=== PATIENT | male | born 1970 | race Caucasian/White ===

== ENCOUNTER → 2017-03-19 | Outpatient (CLI) | payer OTHER, BC | LOC: LAB 13:21 | DX: Z00.00 Encounter for general adult medical examination without abnormal findings (principal); Z12.5 Encounter for screening for malignant neoplasm of prostate ==

== ENCOUNTER 2018-01-21 17:29 | Emergency (ER) | payer OTHER, BC ==
[~2018-01-21] VITALS: Ht 180.3 cm; Wt 109.0 kg
[2018-01-21 18:03] LABS: HEMATOCRIT 42.6 % (42.0-52.0); HEMOGLOBIN 15.4 g/dL (13.5-18.0); MEAN CELL VOLUME 82 fl (78-100); MEAN CORPUSCULAR HEMOGLOBIN 30 pg (27-31); MEAN CORPUSCULAR HGB CONC 36 g/dL (33-37); MEAN PLATELET VOLUME 9.5 fl (7.4-10.4); PLATELET COUNT 156 K/mm3 (130-400); RED BLOOD COUNT 5.21 M/mm3 (4.20-5.60); RED CELL DISTRIBUTION WIDTH 12.9 % (11.5-14.5); WHITE BLOOD COUNT 4.9 K/mm3 (4.8-10.8)
[2018-01-21 18:18] LABS: BUN/CREATININE RATIO 15.6 (6.0-26.0); CALCIUM 8.7 mg/dL (8.4-10.2); POTASSIUM 3.6 mmol/L (3.6-5.0); TOTAL BILIRUBIN 0.6 mg/dL (0.2-1.3)
[2018-01-21 18:21] LABS: PARTIAL THROMBOPLASTIN TIME 23.3 SECONDS (21.0-32.0)
[2018-01-21 18:23] LABS: CKMB ISOENZYME 1.9 ng/mL (0.6-3.5)
[2018-01-21 18:26] LABS: TROPONIN-I < 0.03 ng/mL (0.00-0.06)
[2018-01-21 18:28] LABS: LYMPHOCYTE 30 % (20-51); MONOCYTE 10 % (3-10); NEUTROPHILS 58 % (42-75)
[2018-01-21 23:04] VITALS: BP 125/89
== END 2018-01-21 23:04 | disposition short-term general hospital (02) ==
LOC: ED 17:29
PROVIDERS: Nurse Practitioner
DX: I21.4 Non-ST elevation (NSTEMI) myocardial infarction (principal)
CPT/HCPCS: J1644

== ENCOUNTER 2018-01-24 15:06 | Outpatient (RCR) | payer OTHER, BC | END 2018-04-24 | disposition home or self-care (01) | LOC: CARDREHAB | DX: I21.4 Non-ST elevation (NSTEMI) myocardial infarction (principal) ==

== ENCOUNTER → 2018-08-11 | Outpatient (CLI) | payer BC | LOC: LAB 10:48 | PROVIDERS: Internal Medicine Cardiovascular Disease | DX: E78.5 Hyperlipidemia, unspecified (principal) ==

== ENCOUNTER → 2019-03-13 | Outpatient (CLI) | payer BC ==
[2019-03-13 07:26] LABS: HEMATOCRIT 43.3 % (42.0-52.0); HEMOGLOBIN 15.4 g/dL (13.5-18.0); MEAN CELL VOLUME 83 fl (78-100); MEAN CORPUSCULAR HEMOGLOBIN 30 pg (27-31); MEAN CORPUSCULAR HGB CONC 36 g/dL (33-37); PLATELET COUNT 156 K/mm3 (130-400); RED BLOOD COUNT 5.22 M/mm3 (4.20-5.60); RED CELL DISTRIBUTION WIDTH 12.6 % (11.5-14.5); WHITE BLOOD COUNT 4.9 K/mm3 (4.8-10.8)
[2019-03-13 07:44] LABS: POTASSIUM 3.8 mmol/L (3.5-5.1); TOTAL BILIRUBIN 0.7 mg/dL (0.2-1.2); TOTAL PROTEIN 6.5 g/dL (6.4-8.3)
[2019-03-13 09:01] LABS: LYMPHOCYTE 28 % (20-51); MONOCYTE 10 % (3-10); NEUTROPHILS 53 % (42-75)
[2019-03-13 09:02] LABS: ERYTHROCYTE SEDIMENTATION RATE 1 mm/hr (0-15)
== END ==
LOC: LAB 07:06
PROVIDERS: Internal Medicine
DX: Z00.00 Encounter for general adult medical examination without abnormal findings (principal); Z12.5 Encounter for screening for malignant neoplasm of prostate; Z12.11 Encounter for screening for malignant neoplasm of colon

== ENCOUNTER → 2019-07-03 | Day surgery (SDC) | payer BC | LOC: MSO 09:31 | DX: Z12.11 Encounter for screening for malignant neoplasm of colon (principal); Z79.899 Other long term (current) drug therapy; Z79.82 Long term (current) use of aspirin; I25.2 Old myocardial infarction | CPT/HCPCS: 00812; J2704; J7120 ==

== ENCOUNTER → 2019-10-30 | Outpatient (CLI) | payer BC | LOC: RAD 15:43 | DX: I71.9 Aortic aneurysm of unspecified site, without rupture (principal) ==

== ENCOUNTER → 2020-06-18 | Outpatient (CLI) | payer BC ==
[2020-06-18 08:08] LABS: BASO # 0.1 (0.02-0.10); EOS # 0.3 (0.04-0.40); EOS % 4.9 % (0.0-4.0); HEMATOCRIT 45.8 % (42.0-52.0); HEMOGLOBIN 16.2 g/dL (13.5-18.0); LYMPH# 1.6 (1.50-4.00); MEAN CELL VOLUME 82 fl (78-100); MEAN CORPUSCULAR HEMOGLOBIN 29 pg (27-31); MEAN CORPUSCULAR HGB CONC 35 g/dL (33-37); MEAN PLATELET VOLUME 10.3 fl (7.4-10.4); MONO # 0.7 (0.20-0.80); NEU # 3.3 (1.40-6.50); PLATELET COUNT 172 K/mm3 (130-400); RED BLOOD COUNT 5.62 M/mm3 (4.20-5.60); RED CELL DISTRIBUTION WIDTH 12.9 % (11.5-14.5); WHITE BLOOD COUNT 5.9 K/mm3 (4.8-10.8)
[2020-06-18 08:09] LABS: ALBUMIN 4.2 g/dL (3.5-5.0); POTASSIUM 3.9 mmol/L (3.5-5.1)
[2020-06-18 08:10] LABS: CALCIUM 9.1 mg/dL (8.3-10.5)
[2020-06-18 08:12] LABS: TOTAL PROTEIN 6.8 g/dL (6.4-8.3)
[2020-06-18 08:14] LABS: TOTAL BILIRUBIN 0.7 mg/dL (0.2-1.2)
[2020-06-18 09:13] LABS: ERYTHROCYTE SEDIMENTATION RATE 0 mm/hr (0-20)
== END ==
LOC: LAB 07:06
PROVIDERS: Internal Medicine
DX: Z00.00 Encounter for general adult medical examination without abnormal findings (principal)

== ENCOUNTER → 2021-01-02 | Outpatient (CLI) | payer BC ==
[2021-01-02 07:45] LABS: EOS # 0.1 (0.04-0.40); EOS % 2.6 % (0.0-4.0); HEMATOCRIT 45.7 % (42.0-52.0); HEMOGLOBIN 16.1 g/dL (13.5-18.0); LYMPH# 1.3 (1.50-4.00); MEAN CELL VOLUME 82 fl (78-100); MEAN CORPUSCULAR HEMOGLOBIN 29 pg (27-31); MEAN CORPUSCULAR HGB CONC 35 g/dL (33-37); MEAN PLATELET VOLUME 9.8 fl (7.4-10.4); MONO # 0.6 (0.20-0.80); PLATELET COUNT 157 K/mm3 (130-400); RED BLOOD COUNT 5.56 M/mm3 (4.20-5.60); RED CELL DISTRIBUTION WIDTH 13.2 % (11.5-14.5); WHITE BLOOD COUNT 5.1 K/mm3 (4.8-10.8)
[2021-01-02 07:54] LABS: ALBUMIN 4.3 g/dL (3.5-5.0); POTASSIUM 4.2 mmol/L (3.5-5.1)
[2021-01-02 07:55] LABS: CALCIUM 9.1 mg/dL (8.3-10.5)
[2021-01-02 07:56] LABS: TOTAL PROTEIN 6.8 g/dL (6.4-8.3)
[2021-01-02 08:50] LABS: ERYTHROCYTE SEDIMENTATION RATE 1 mm/hr (0-20)
== END ==
LOC: LAB 07:06
PROVIDERS: Internal Medicine
DX: Z00.00 Encounter for general adult medical examination without abnormal findings (principal); Z12.5 Encounter for screening for malignant neoplasm of prostate; Z12.11 Encounter for screening for malignant neoplasm of colon

== ENCOUNTER → 2021-05-16 | Outpatient (CLI) | payer BC ==
[2021-05-16 07:24] LABS: ALBUMIN 4.3 g/dL (3.5-5.0)
[2021-05-16 07:27] LABS: TOTAL PROTEIN 7.1 g/dL (6.4-8.3)
[2021-05-16 07:29] LABS: TOTAL BILIRUBIN 0.8 mg/dL (0.2-1.2)
[2021-05-16 07:32] LABS: DIRECT BILIRUBIN 0.3 mg/dL (0.0-0.5)
== END ==
LOC: LAB 07:05
PROVIDERS: Internal Medicine
DX: B35.1 Tinea unguium (principal)

== ENCOUNTER → 2021-11-13 | Outpatient (CLI) | payer BC | LOC: RAD 14:27 | DX: M23.52 Chronic instability of knee, left knee (principal); M71.22 Synovial cyst of popliteal space [Baker], left knee; S83.282A Other tear of lateral meniscus, current injury, left knee, initial encounter; S83.242A Other tear of medial meniscus, current injury, left knee, initial encounter; M94.262 Chondromalacia, left knee ==

== ENCOUNTER → 2021-12-24 | Outpatient (CLI) | payer BC ==
[2021-12-24 08:19] LABS: BASO # 0.05 K/mm3 (0.02-0.10); EOS # 0.15 K/mm3 (0.04-0.40); EOS % 2.9 % (0.0-4.0); HEMATOCRIT 44.1 % (42.0-52.0); HEMOGLOBIN 16.1 g/dL (13.5-18.0); LYMPH# 1.19 K/mm3 (1.50-4.00); MEAN CELL VOLUME 81 fl (78-100); MEAN CORPUSCULAR HEMOGLOBIN 30 pg (27-31); MEAN CORPUSCULAR HGB CONC 37 g/dL (33-37); MEAN PLATELET VOLUME 9.3 fl (7.4-10.4); MONO # 0.53 K/mm3 (0.20-0.80); NEU # 3.24 K/mm3 (1.40-6.50); PLATELET COUNT 142 K/mm3 (130-400); RED BLOOD COUNT 5.43 M/mm3 (4.20-5.60); RED CELL DISTRIBUTION WIDTH 12.4 % (11.5-14.5); WHITE BLOOD COUNT 5.2 K/mm3 (4.8-10.8)
[2021-12-24 08:24] LABS: POTASSIUM 3.8 mmol/L (3.5-5.1)
[2021-12-24 08:25] LABS: ALBUMIN 4.3 g/dL (3.5-5.0)
[2021-12-24 08:26] LABS: CALCIUM 9.2 mg/dL (8.3-10.5)
[2021-12-24 08:27] LABS: TOTAL PROTEIN 6.8 g/dL (6.4-8.3)
[2021-12-24 09:48] LABS: ERYTHROCYTE SEDIMENTATION RATE 2 mm/hr (0-20)
== END ==
LOC: LAB 07:49
PROVIDERS: Internal Medicine
DX: Z00.00 Encounter for general adult medical examination without abnormal findings (principal); Z12.11 Encounter for screening for malignant neoplasm of colon; Z12.5 Encounter for screening for malignant neoplasm of prostate

== ENCOUNTER → 2022-05-20 | Outpatient (CLI) | payer BC | LOC: RAD 12:47 | DX: M25.511 Pain in right shoulder (principal) ==

== ENCOUNTER → 2023-10-07 | Outpatient (CLI) | payer OTHER ==
[2023-10-07 09:29] LABS: URINE WBC 0 /hpf (0-3)
[2023-10-07 09:30] LABS: BASO # 0.06 K/mm3 (0.02-0.10); EOS # 0.23 K/mm3 (0.04-0.40); EOS % 3.9 % (0.0-4.0); HEMATOCRIT 44.9 % (42.0-52.0); HEMOGLOBIN 15.7 g/dL (13.5-18.0); LYMPH# 1.21 K/mm3 (1.50-4.00); MEAN CELL VOLUME 84 fl (78-100); MEAN CORPUSCULAR HEMOGLOBIN 29 pg (27-31); MEAN CORPUSCULAR HGB CONC 35 g/dL (33-37); MEAN PLATELET VOLUME 8.9 fl (7.4-10.4); MONO # 0.65 K/mm3 (0.20-0.80); NEU # 3.68 K/mm3 (1.40-6.50); PLATELET COUNT 152 K/mm3 (130-400); RED BLOOD COUNT 5.37 M/mm3 (4.20-5.60); RED CELL DISTRIBUTION WIDTH 11.9 % (11.5-14.5); WHITE BLOOD COUNT 5.9 K/mm3 (4.8-10.8)
[2023-10-07 09:40] LABS: ALBUMIN 4.4 g/dL (3.5-5.0)
[2023-10-07 09:41] LABS: CALCIUM 9.1 mg/dL (8.3-10.5)
[2023-10-07 09:43] LABS: TOTAL PROTEIN 6.9 g/dL (6.4-8.3)
[2023-10-07 09:44] LABS: TOTAL BILIRUBIN 0.7 mg/dL (0.2-1.2)
[2023-10-07 09:49] LABS: MAGNESIUM 2.01 mg/dL (1.60-2.60)
[2023-10-07 09:58] LABS: PROTHROMBIN TIME 10.2 SECONDS (9.0-12.0)
[2023-10-07 10:07] LABS: URINE APPEARANCE CLEAR (CLEAR); URINE BILIRUBIN NEGATIVE (NEGATIVE); URINE BLOOD NEGATIVE (NEGATIVE); URINE COLOR YELLOW (YELLOW); URINE GLUCOSE NEGATIVE (NEGATIVE); URINE KETONE NEGATIVE (NEGATIVE); URINE LEUKOCYTE ESTERASE NEGATIVE (NEGATIVE); URINE MUCUS PRESENT (NOT PRESENT); URINE NITRATE NEGATIVE (NEGATIVE); URINE PROTEIN(semi-quant) NEGATIVE (NEGATIVE)
== END ==
LOC: LAB 09:17
PROVIDERS: Internal Medicine
DX: Z01.818 Encounter for other preprocedural examination (principal)